=== PATIENT | female | born 1955 | race Caucasian/White ===

== ENCOUNTER 2022-01-23 21:58 | Observation (INO) | payer MEDICARE, SELFPAY ==
--- NOTE | ~2022-01-23 | XR_ITS ---
EXAMINATION: XR chest 1V portable INDICATION: Cough TECHNIQUE: Portable AP chest at 2359 hours COMPARISON: None available FINDINGS: The lungs are free of acute opacities. No pleural effusion or pneumothorax. The cardiomedia stinal silhouette is normal. Changes of fusion procedure are noted in the lower cervical spine. IMPRESSION: 1. No acute cardiopulmonary abnormality. Reviewed, dictated and finalized at location A. HATCHERY INSPECTOR
--- NOTE | ~2022-01-23 | CT_ITS ---
EXAMINATION: CT brain wo con DATE: 01/24/2022 00:50 INDICATION: Syncope. Found lying in driveway. TECHNIQUE: Computed tomography (CT) of the head was performed without intravenous contrast. The mA wa s adjusted according to patient size. Iterative reconstruction technique was employed. Exam dose: 12 10.67 mGy-cm total exam DLP. COMPARISON: None FINDINGS: Bilateral carotid siphon and supraclinoid internal carotid artery calcifications and verteb ral artery calcification. There is nonspecific diminished attenuation of the cerebral white matter, l ikely due to chronic small vessel ischemic changes. Bilateral chronic basal ganglia lacunar infarcts. No intracranial mass lesion or hemorrhage, midline shift or mass effect. No subdural or epidural hematoma. Focal Periosteal thickening or mucous retention cyst in the posterior left maxillary sinus and mild soft ti ssue thickening the ethmoid air cells. The paranasal sinuses and mastoid air cells are otherwise unre markable. No fracture or bone destruction of the cranial vault. IMPRESSION: Cerebral atherosclerosis and chronic small vessel ischemic changes of the cerebral white matter Bilateral chronic basal ganglia lacunar infarcts No acute intracranial finding or skull fracture Reviewed, dictated and finalized at Location A. Reviewed, dictated and finalized at location B. H DYEING RANGE TENDER
--- NOTE | ~2022-01-23 | CT_ITS ---
EXAMINATION: CTA brain DATE: 01/26/2022 20:27 INDICATION: Syncope. TECHNIQUE: Computed tomographic angiography (CTA) of the head was performed without and with 100 mL O mnipaque-350 intravenous contrast. Automated exposure control and iterative reconstruction technique were employed. The dose-length product was 1084.96 mGy-cm. Maximum intensity projection 3D reconstru ctions were created. Volume-rendered 3D reconstructions of the intracranial arteries were created by the technologist on a separate workstation. COMPARISON: Head CT 01/24/2022, brain MRI 01/24/2022 FINDINGS: There is an old infarct in left occipital lobe. There are old infarcts involving the bilate ral basal ganglia and anterior limbs of the internal capsules. There are scattered areas of low atten uation in the cerebral white matter. There is no intracranial hemorrhage, acute infarction, or abnorm al intracranial mass lesion. There is ex vacuo dilatation of the body of left lateral ventricle. Ther e is mild mucosal thickening in the paranasal sinuses. The mastoid air cells are normal. The orbits a re normal. Right vertebral artery is dominant. There is mild stenosis of basilar artery. There is no significant stenosis of the posterior cerebral arteries. There is mild stenosis of the intracranial i nternal carotid arteries and middle cerebral arteries. There is no significant stenosis of the anteri or cerebral arteries. Anterior communicating artery is normal. Posterior communicating arteries are n ot identified. There is no aneurysm. IMPRESSION: 1. Old infarcts involving the bilateral basal ganglia, anterior limbs of the bilateral internal capsu les, and left occipital lobe. 2. Mild nonspecific cerebral white matter disease, which likely represents chronic small vessel ische duy disease. 3. No aneurysm or significant intracranial arterial stenosis. Reviewed, dictated and finalized at location A. SION HUMAN RESOURCES MANAGER IMPRESSION: 1. Old infarcts involving the bilateral basal ganglia, anterior limbs of the bi lateral internal capsules, and left occipital lobe. 2. Mild nonspecific cerebral white matter disease, which likely represents matrix worker ale small vessel ischemic disease. 3. No aneurysm or significant intracranial arterial stenosis.
--- NOTE | ~2022-01-23 | MR_ITS ---
EXAMINATION: MR brain/brain stem wo con DATE: 01/24/2022 08:39 INDICATION: Syncope. TECHNIQUE: Magnetic resonance imaging (MRI) of the brain and brainstem was performed without intraven ous contrast. COMPARISON: Head CT 01/24/2022 FINDINGS: There are old infarcts in the bilateral basal ganglia. There is a small infarct in left occ ipital lobe. There are scattered areas of nonspecific increased T2-weighted signal intensity in the c erebral white matter. There is no intracranial hemorrhage, acute infarction, or abnormal intracranial mass lesion. The ventricles are normal in size. There is mild mucosal thickening in the paranasal si nuses. The orbits are normal. The mastoid air cells are normal. IMPRESSION: 1. Old infarcts in the left occipital lobe and bilateral basal ganglia. 2. Mild nonspecific cerebral white matter disease, which likely represents chronic small vessel ische duy disease. Reviewed, dictated and finalized at location A. SACTION ADVISORY SERVICES MANAGER IMPRESSION: 1. Old infarcts in the left occipital lobe and bilateral basal ganglia. 2. Mild nonspecific cerebral white matter disease, which likely represents finish repair worker ale small vessel ischemic disease.
--- NOTE | ~2022-01-23 | US_ITS ---
EXAMINATION: US carotid duplex BI DATE: 01/24/2022 14:23 INDICATION: Syncope TECHNIQUE: Grayscale, color Doppler, and pulsed Doppler images of the cervical carotid arteries were obtained. The degree of vessel stenosis is placed in one of the following categories: normal, <50%, 5 0-69%, >=70% but less than near-occlusion, near-occlusion, or total occlusion. Note that percent sten osis relative to normal distal artery lumen diameter is indirectly measured from velocity measurement s as described by Lee, et al. Radiology 2003; 229:340-346. Notes: Normal: Peak systolic velocity <125 centimeters/sec and no plaque <50%. Peak systolic velocity <125 ( EDV <40; ICA/CCA PSV ratio <2.0; used these factors only a tandem lesions or low cardiac output or co ntralateral disease) 50-69 %: PSV 125-230 (EDV 40-100; ratio 2-4) >= 70% but less than near occlusion: PSV greater than 230 (EDV > 100; ratio> 4.0) Near Occlusion: PSV that is variable; markedly narrowed lumen Occlusion: Absent flow on color/spectral Doppler and no lumen on beth scale. COMPARISON: None. FINDINGS: RIGHT: The right common carotid artery (CCA) peak systolic velocity (PSV) is 92 cm/s. The right internal car otid artery (ICA) PSV is 104 cm/s. The right ICA end-diastolic velocity (EDV) is 32 cm/s. The right I CA/CCA PSV ratio is 1.1. The external carotid artery (ECA) PSV is 132 cm/s. There is antegrade flow i n the right vertebral artery. LEFT: The left CCA PSV is 112 cm/s. The left ICA PSV is 97 cm/s. The left ICA EDV is 38 cm/s. The left ICA/ CCA PSV ratio is 0.9. The ECA PSV is 16 cm/s. There is antegrade flow in the left vertebral artery. IMPRESSION: 1. Less than 50% stenosis in the right internal carotid artery by sonographic criteria. 2. Less than 50% stenosis in the left internal carotid artery by sonographic criteria. Reviewed, dictated and finalized at location A. CLERK IMPRESSION: 1. Less than 50% stenosis in the right internal carotid artery by sonographic ryanne calhoun. 2. Less than 50% stenosis in the left internal carotid artery by sonographic pauline singh.
--- NOTE | ~2022-01-23 | CT_ITS ---
EXAMINATION: CT cervical spine wo con DATE: 01/24/2022 00:49 INDICATION: Fall. Found lying in driveway. TECHNIQUE: Computed tomography (CT) of the cervical spine was performed without intravenous contrast. Automated exposure control and iterative reconstruction technique were employed. Exam dose: 502.85 mGy-cm total exam DLP. COMPARISON: None FINDINGS: Status post anterior and interbody surgical fusion at C6-7. There is straightening of the cervical spine which may be due to positioning or muscle spasm. There is minimal anterolisthesis at C2-3 and C3-4. Mild degenerative disease at C3-4. Moderate degenerative disease at C4-5. Moderately severe degenerative disc disease at C5-6. Moderate degenerative disc disease and minimal anterolisthesis at C7-T1. Degenerative changes noted at the apophyseal joints, most prominently at C2-3 and C3-4 on the left an d bilaterally at C7-T1. Uncovertebral joint spurring is noted, particularly prominent on the right at C4-5 and bilaterally at C5-6. C1 and C2 are normally aligned and the odontoid process is intact. No fracture or dislocation or lock ed facet or prevertebral soft tissue swelling. IMPRESSION: Straightening of the cervical spine which may be due to muscle spasm; no fracture or dis location or locked facet Status post anterior and interbody surgical fusion at C6-7 Cervical spondylosis Reviewed, dictated and finalized at Location A. Reviewed, dictated and finalized at location B. E WORKER PACKAGER IMPRESSION: Straightening of the cervical spine which may be due to muscle spa sm; no fracture or dislocation or locked facet Status post anterior and interbody surgical fusion at C6-7 Cervical spondylosis
[2022-01-23 22:02] VITALS: BP 156/65; PULSE 121; RESP 22; TEMP 37.5; O2SAT 93
--- NOTE | 2022-01-23 22:02 | ECG_ITS ---
Measurements Intervals [place] Rate: 117 P: 29 RI: 140 QRS: 15 QRSD: 95 T: 55 QT: 437 QTc: 611 Interpretive Statements SINUS TACHYCARDIA POSSIBLE LEFT ATRIAL ENLARGEMENT [-0.1mV P WAVE IN V1/V2] BORDERLINE ECG NO PREVIOUS ECG AVAILABLE FOR COMPARISON Electronically Signed On 01-25-2022 7:20:10 CHANNEL CEMENTER INSOLE MACHINE by Marco A Carter M.D.
[2022-01-23 22:20] LABS: Basophils Absolute Auto 0.1 K/mm3 (0.0-0.1); Basophils Percent Auto 0.8 % (0.2-1.2); Hematocrit 38.1 % (37.0-47.0); Hemoglobin 12.9 g/dL (12.0-15.0); Immature Granulocyte Absolute 0.03 K/mm3 (0.00-0.031); Immature Granulocyte Percent A 0.3 % (0-0.5); Lymphocytes Absolute Auto 0.51 K/mm3 (0.9-3.2); Lymphocytes Percent Auto 5.7 % (18.3-44.2); Mean Corpuscular HGB Conc 33.9 g/dl (32-36); Mean Corpuscular Hemoglobin 29.9 pg (26-34); Mean Corpuscular Volume 88.2 fl (80-100); Monocytes Absolute Auto 0.9 K/mm3 (0.1-0.6); Monocytes Percent Auto 9.8 % (2.6-8.5); Neutrophils Absolute Auto 7.4 K/mm3 (1.3-6.7); Neutrophils Percent Auto 83.4 % (45.5-73.1); Platelet Count Result 266 k/mm3 (150-375); Red Blood Count 4.32 M/mm3 (4.2-5.4); Red Cell Distribution Width 13.2 % (11.5-14.5); White Blood Count 8.9 K/mm3 (4.5-10.0)
[2022-01-23 22:31] LABS: Alanine Aminotransferase 29 U/L (6-35); Albumin Level 4.4 g/dL (3.5-5.1); Alkaline Phosphatase 190 U/L (38-126); Anion Gap 9 mmol/L (8-16); Aspartate Amino Transferase 47 U/L (14-36); Bilirubin,Total 0.7 mg/dL (0.2-1.3); Blood Urea Nitrogen 15 mg/dL (7-17); Calcium 8.7 mg/dL (8.4-10.2); Carbon Dioxide 26 mmol/L (22-30); Chloride 88 mmol/L (98-107); Estimated Glomerular Filt Rate 55; Glucose 119 mg/dL (65-110); Potassium 3.8 mmol/L (3.4-5.0); Sodium 123 mmol/L (137-145)
[2022-01-24] VITALS (33 sets, daily range): BP systolic 110–168; BP diastolic 54–120; PULSE 78–116; RESP 14–26; TEMP 36.2–36.6; O2SAT 87–97; BMI 34.2; BMI 34.0
--- NOTE | 2022-01-24 | ECHO_ITS ---
Patient Info Name: Altagracia Gaviria Age: 66 years : 1955 Gender: Female Ht: 63 in Wt: 191 lbs BSA: 2.00 m2 HR: 81 bpm Heart Rhythm: Sinus Rhythm Technical Quality: Fair Exam Date: 01/24/2022 3:09 PM Exam Location: [facility] Exam Room: [facility] Patient Status: Outpatient Admit Date: 01/24/2022 Staff Ordering Physician: Bernice Soto MD Retail Wireless Associate: Freda Loo RDCS Attending Provider: Bernice Soto MD Referring Physician: Charles MURO; Exam Type: CA echo doppler color flow Study Info Indications - syncope Complete two-dimensional, color flow and Doppler transthoracic echocardiogram is performed. Summary 1. Complete two-dimensional, color flow and Doppler transthoracic echocardiogram is performed. 2. Normal left ventricular size with concentric hypertrophy and hyperdynamic systolic function. 3. Grade 1 diastolic noncompliance. 4. Mildly sclerotic aortic valve which is not stenotic. Left Ventricle Left ventricular chamber dimension is normal. Left ventricular systolic function is hyperdynamic, estimated at >70%. There is moderate concentric increased left ventricular wall thickness. The left ventricular diastolic function is grade I diastolic dysfunction. Right Ventricle Right ventricular chamber dimension is normal. Left Atria Left atrial chamber dimension is normal. Right Atria Right atrial chamber dimension is normal. Aortic Valve The aortic valve is trileaflet. There is mild aortic valve sclerosis. Pulmonic Valve The pulmonic valve is not well visualized. Mitral Valve The mitral valve has normal leaflets. The mitral valve annulus is mildly calcified. Tricuspid Valve The tricuspid valve leaflets are normal. Pericardium/Pleural The pericardium appears normal. Aorta The aortic root size at the sinus of Valsalva is normal. Left Ventricular Outflow Tract Name Value Normal LVOT 2D LVOT Diameter 2.0 cm LVOT Doppler LVOT Peak Gradient 6 mmHg LVOT Mean Gradient 4 mmHg LVOT VTI 21 cm LVOT VTI/AV VTI Ratio 0.8 LVOT Stroke Volume 64 ml LVOT CO 16.3 l/min LVOT CI 8.2 l/min/m2 Pulmonic Valve Name Value Normal PV Doppler PV Peak Gradient 4 mmHg Mitral Valve Name Value Normal MV Doppler MV Decel [place] 360 cm/s2 MV PHT 60 ms MV Area (PHT)
[2022-01-24 00:07] LABS: Ethanol < 10 mg/dL (<10)
[2022-01-24 00:21] LABS: NT Pro B Type Natriuretic Pept 388 pg/mL (5-100); Troponin I < 0.012 ng/mL (0.000-0.034)
--- NOTE | 2022-01-24 00:24 | ED.GENADULT ---
HPI - General Adult General Chief complaint: Syncope Stated complaint: syncope Time Seen by Provider: 01/23/22 23:50 History of Present Illness HPI narrative: This is a 66-year-old female presenting ED after being found down in her driveway. Patient says that she went outside to have a smoke. Next thing she remembers being woken up by her son. Her son said he found her laying on the ground. When he got there she was confused, more so than usual. Patient had urinary incontinence. She did not bite her tongue. Patient has no history of seizures. She does not recall the events leading up to her loss of consciousness. She denies any pain at this time. She has poor baseline respiratory status but does not state is any worse than usual. Patient has a history of CVA with memory loss and generalized weakness but no focal deficits. Related Data Allergies Allergy/AdvReac Type Severity Reaction Status Date / Time No Known Allergies Allergy Verified 01/24/22 01:08 Review of Systems Review of Systems: CONSTITUTIONAL: Denies night sweats. EYES: No eye pain ENT: Denies rhinorrhea CARDIOVASCULAR: Denies palpitations RESPIRATORY: Denies hemoptysis GASTROINTESTINAL: Denies hematemesis GENITOURINARY: Denies hematuria. SKIN: Denies rash MUSCULOSKELETAL: Denies myalgia. NEUROLOGIC: Denies weakness. PSYCHIATRIC: Denies delusions PMFSH Past Medical History Medical History CAD (coronary artery disease) COPD (chronic obstructive pulmonary disease) CVA (cerebral vascular accident) Hypertension Hypothyroid Surgical History Surgical History (Updated 01/24/22 @ 00:27 by Marin Curiel MD) H/O section Hx of cholecystectomy Social History Social History (Updated 01/24/22 @ 00:27 by Marin Curiel MD) Social History: denies alcohol, long-time smoker, denies drug use Exam Narrative: APPEARANCE: patient appears chronically unwell Head: atraumatic. EYES: EOMI, NOSE: Atraumatic NECK: Trachea midline RESPIRATORY: scattered expiratory wheezes, increased work of breathing CARDIOVASCULAR: tachycardic ABDOMINAL: obese, no tenderness guarding or rebound MUSCULOSKELETAl: No obvious deformities NEURO: Alert. Cranial nerves 2-12 grossly intact. Sensation light touch, motor function cerebellar function intact for 4 extremities. Gait exam was deferred SKIN:: Warm, dry. Normal color PSYCHIATRIC: Normal affect Course Vital Signs Vital signs: Vital Signs Temperature 99.5 F 01/23/22 22:02 Pulse Rate 121 H 01/23/22 22:02 Respiratory Rate 22 H 01/23/22 22:02 Blood Pressure 156/65 H 01/23/22 22:02 Pulse Oximetry 93 01/23/22 22:02 Oxygen Delivery Room Air 01/23/22 22:02 Temperature 99.5 F 01/23/22 22:02 Pulse Rate 111 H 01/24/22 00:59 Respiratory Rate 23 H 01/24/22 00:59 Blood Pressure 156/65 H 01/23/22 22:02 Pulse Oximetry 93 01/23/22 22:02 Oxygen Delivery Room Air 01/23/22 22:02 Medical Decision Making MDM Narrative Medical decision making narrative: This is a chronically unwell 66-year-old female presenting after being found down in her driveway. Differential includes syncope versus seizure. Lab work, CT head chest x-ray EKG been obtained. CT head and C-spine were negative for any acute findings Lab work was significant for hyponatremia and hypochloremia. The patient is receiving IV fluids. Rest her lab work within normal limits. Trop. EKG interpretation: Rhythm [sinus], Rate 117 [place] -[normal], [place] -[normal], QRS [narrow], QTC [normal], T waves -[negative for concerning inversions], ST Segments - [Negative for concerning elevations] Final interpretations: Sinus tachycardia this time patient's workup has been negative. She presents with a mixed picture and it is possible this is a syncopal event versus seizure. Given the patients poor baseline health and unclear diagnosis she will be admitted
[2022-01-24] MEDS: IPRATROPIUM BR 0.02% INH SOLN 0.5 MG/2.5 ML VIAL INHALATION ×2 (00:47→21:30)
[2022-01-24] MEDS: ALBUTEROL SULFATE NEB 2.5 MG/3 ML INH 5 MG INHALATION (00:47)
[2022-01-24 01:04] LABS: Influenza A QL RT-PCR Positive (Negative); Influenza B QL RT-PCR Negative (Negative); SARS-CoV-2 RNA PCR Negative
[2022-01-24] MEDS: SODIUM CHLORIDE 0.9% IV 1,000 ML 999 ML IV CONT ×2 (01:08→02:17)
[2022-01-24] MEDS: methylPREDNISolone SOD SUCC 125 MG VIAL IV PUSH (01:10)
[2022-01-24] MEDS: MAGNESIUM SULF 2 GM/WATER 50ML 2 GM/50 ML BAG IVPB (01:13)
--- NOTE | 2022-01-24 01:44 | P.HP_ITS ---
H&P: HPI History of Present Illness Date/Time: 01/24/22 01:44 [facility] Past Medical History Medical History CAD (coronary artery disease) COPD (chronic obstructive pulmonary disease) CVA (cerebral vascular accident) Hypertension Hypothyroid Surgical History Surgical History (Updated 01/24/22 @ 00:27 by Marin Curiel MD) H/O section Hx of cholecystectomy Social History Social History (Updated 01/24/22 @ 00:27 by Marin Curiel MD) Social History: denies alcohol, long-time smoker, denies drug use Meds Home Medications and Allergies Allergies Allergy/AdvReac Type Severity Reaction Status Date / Time No Known Allergies Allergy Verified 01/24/22 01:08 Vital Signs Vital Signs - 24 hr 01/23/22 22:02 01/24/22 00:36 01/24/22 00:50 Temperature 99.5 F Pulse Rate 121 H 78 114 H Respiratory Rate 22 H 20 Blood Pressure 156/65 H Pulse Oximetry 93 Oxygen Delivery Room Air 01/24/22 00:59 Temperature Pulse Rate 111 H Respiratory Rate 23 H Blood Pressure Pulse Oximetry Oxygen Delivery H&P: Results Labs Labs: Short CBC 01/23/22 Range/Units 22:15 WBC 8.9 (4.5-10.0) K/mm3 Hgb 12.9 (12.0-15.0) g/dL Hct 38.1 (37.0-47.0) % Plt Count 266 (150-375) k/mm3 [facility] 01/23/22 22:15 Sodium 123 L Potassium 3.8 Chloride 88 L Carbon Dioxide 26 BUN 15 Creatinine 1.00 Glucose 119 H Calcium 8.7 Cardiac Enzymes 01/23/22 Range/Units 22:15 Troponin I < 0.012 (0.000-0.034) ng/mL Liver Function 01/23/22 Range/Units 22:15 Total Bilirubin 0.7 (0.2-1.3) mg/dL AST 47 H (14-36) U/L ALT 29 (6-35) U/L Alkaline Phosphatase 190 H (38-126) U/L Albumin 4.4 (3.5-5.1) g/dL
[2022-01-24 02:17] LABS: Amphetamine Screen Urine Negative (Negative); Barbiturate Screen Urine Negative (Negative); Benzodiazepines Screen Urine Negative (Negative); Cannabinoid Screen Urine Negative (Negative); Cocaine Screen Urine Negative (Negative); Methadone Screen Urine Negative (Negative); Opiate Screen Urine Negative (Negative); Phencyclidine Screen Urine Negative (Negative)
[2022-01-24 02:44] LABS: Troponin I < 0.012 ng/mL (0.000-0.034)
--- NOTE | 2022-01-24 05:10 | PM.IMHP ---
H&P: HPI History of Present Illness Date/Time: 01/24/22 05:10 Chief Complaint: SYNCOPE Narrative: This is a 66-year-old female with past medical history significant for COPD / emphysema, coronary artery disease, hypertension current everyday smoker 1 pack a day. patient was brought to the emergency room after she was found down in her driveway she had been in her usual state of health according to patient she went out to smoke and a family member so her laying on the driveway. Patient denies any aura, no migraine headache, no vision changes, no lightheadedness, has no recollection of the event she was confused when her family member tried to arouse her, patient denies any fevers, rigors, chills, chest pain, leg swelling, nausea, vomiting, abdominal pain. Patient is being placed in observation for further evaluation management and treatment. Review of Systems Review of Systems: Found down in her driveway Constitutional: Constitutional: Denies chills, Denies fever(s), Denies malaise, Denies night sweats and Denies weakness Eyes: Eyes: Denies change in vision, Denies diplopia and Denies floaters ENT: Denies dysphagia, Denies vertigo, Denies dizziness, Denies odynophagia and Denies disequilibrium Cardiovascular: Cardiovascular: Denies chest pain, Reports syncope, Denies irregular heart rhythm, Denies leg edema and Denies lightheadedness Gastrointestinal: Gastrointestinal: Denies abdominal pain, Denies dyspepsia, Denies heartburn, Denies diarrhea, Denies nausea and Denies vomiting Genitourinary: Genitourinary: Denies dysuria Musculoskeletal: Musculoskeletal: Denies myalgias, Denies limited range of motion and Denies neck pain Integumentary/Breasts: Skin/Breast: Denies rash Neurologic: Denies Abnormal speech present, Denies abnormal gait, Denies vertigo, Denies dizziness, Reports syncope, Denies frequent falls, Denies headache(s), Denies focal weakness and Denies Sensory deficit (Neuro) Psychiatric: Psychiatric: Reports no additional psychiatric complaints and Reports as per HPI Endocrine: Endocrine: Denies cold intolerance, Denies flushing, Denies heat intolerance, Denies polyphagia, Denies polydipsia and Denies palpitations Hematologic/Lymphatic: Hematologic/Lymphatic: Reports no additional hematologic/lymphatic complaints and Reports as per HPI Allergic/Immunologic: Allergic/Immunologic: Reports no additional allergic/immunologic complaints and Reports as per HPI [facility] Past Medical History Medical History CAD (coronary artery disease) COPD (chronic obstructive pulmonary disease) CVA (cerebral vascular accident) Hypertension Hypothyroid Surgical History Surgical History (Updated 01/24/22 @ 00:27 by Marin Curiel MD) H/O section Hx of cholecystectomy Social History Social History (Updated 01/24/22 @ 00:27 by Marin Curiel MD) Social History: denies alcohol, long-time smoker, denies drug use Smoking packs per day: 1 Smoking cigarettes per day: 20.0 Years smoked: 50 Smoking pack-years: 50.00 Smoking status: Current every day smoker Tobacco type: cigarettes Alcohol intake: never Substance use: never Lack of Transportation: No Lack of Food: Never True Current Housing: I Have Housing Concerned About Future Housing: Decline to Answer Difficulty Paying Gas/Electric Bills: Decline to Answer Difficulty Paying for Meds: Decline to Answer Currently Unemployed: Decline to Answer Education: Decline to Answer Difficulty w/ Childcare or Family Care: Decline to Answer Spiritual care concerns: No Meds Home Medications and Allergies Allergies Allergy/AdvReac Type Severity Reaction Status Date / Time No Known Allergies Allergy Verified 01/24/22 01:08 Vital Signs Vital Signs - 24 hr 01/23/22 22:02 01/24/22 00:36 01/24/22 00:50 Temperature 99.5 F Pulse Rate 121 H 78 114 H Respiratory Rate 22 H 20 Bl
[2022-01-24 09:20] LABS: Glucose Point of Care 158 mg/dl (65-105)
[2022-01-24 12:14] LABS: Glucose Point of Care 136 mg/dl (65-105)
--- NOTE | 2022-01-24 13:29 | PM.IMPN ---
Progress Note: A&P Assessment and Plan (1) Syncope and collapse: Code(s): R55 - Syncope and collapse Status: Acute Assessment and Plan: Patient presented to the ED following an unwitnessed syncopal episode at home. Patient was found on her driveway by her son. No prior history of syncope or seizures. She does endorse a prior stroke this year without residual. Patient did test positive for influenza A. Sodium 123 on admission. Trend sodium Neuro was consulted appreciate recommendations. Chest x-ray was negative for acute pulmonary disease Head CT shows bilateral chronic basal ganglia lacunar infarcts but no acute disease. CT cervical spine showed acute fracture or dislocation Brain MRI shows old infarcts to the left occipital lobe and bilateral basal ganglia but no acute stroke Carotid Dopplers pending Seizure precautions Check orthostatic vitals Monitor telemetry PT/OT evaluation (2) Hyponatremia: Code(s): E87.1 - Hypo-osmolality and hyponatremia Status: Acute Assessment and Plan: Sodium 123 on admission. No prior labs available to compare. Start NS IV fluids at 100 mL/hour Check urine osmo and urine sodium Seizure precautions. Trend sodium q.6 hours until greater than 130 (3) Flu: Code(s): J11.1 - Influenza due to unidentified influenza virus with other respiratory manifestations Status: Acute Assessment and Plan: patient tested positive for influenza A upon admission. She is requiring supplemental oxygen at this time. Chest x-ray is without infiltrates or consolidations suggesting bacterial pneumonia. No leukocytosis. No bandemia. Hold antibiotics at this time. Start Tamiflu, renally dosed continue for 5 days. Continue supplemental oxygen to keep sats greater than 92% and wean as patient tolerates Recommend patient get influenza vaccination, up-to-date on pneumococcal vaccination, and COVID-19 series plus booster at discharge. (4) New onset seizure: Code(s): R56.9 - Unspecified convulsions Status: Acute Assessment and Plan: Patient was found on the driveway by her son. Patient was confused and had urinary incontinence. No tongue injury reported. Patient has no prior history of seizures. Of note patient has sodium level of 123 on admission prior history stroke. Seizure precautions Neuro consulted and appreciate recommendations (5) Acute dehydration: Code(s): E86.0 - Dehydration Status: Acute Assessment and Plan: As above. On IV fluids (6) COPD (chronic obstructive pulmonary disease): Qualifiers: COPD type: unspecified COPD Qualified Code(s): J44.9 - Chronic obstructive pulmonary disease, unspecified Code(s): J44.9 - Chronic obstructive pulmonary disease, unspecified Status: Chronic Assessment and Plan: Chronic, exacerbated by influenza infection. DuoNebs scheduled q.6 hours and titrate as needed. Prednisone 40 mg p.o. daily x5 days or longer if patient has extended recovery Hold patient maintenance inhalers lung receiving scheduled NKECHI (7) CAD (coronary artery disease): Qualifiers: Coronary Disease-Associated Artery/Lesion type: [place] artery [place] vs. transplanted heart: [place] heart Associated angina: without angina Qualified Code(s): I25.10 - Atherosclerotic heart disease of [place] coronary artery without angina pectoris Code(s): I25.10 - Atherosclerotic heart disease of [place] coronary artery without angina pectoris Status: Chronic Assessment and Plan: Chronic, stable. Clarify patient home meds and continue his blood pressure tolerates (8) Hypertension: Qualifiers: Hypertension type: primary hypertension Qualified Code(s): I10 - Essential (primary) hypertension Code(s): I10 - Essential (primary) hypertension Status: Chronic Assessment and Plan: Chronic, stable. clarify patient home dose and resume
[2022-01-24] MEDS: OSELTAMIVIR PHOSPHATE ORAL SUSP 30 MG/5 ML SYRINGE PO ×2 (13:32→21:41)
[2022-01-24] MEDS: SODIUM CHLORIDE 0.9% IV 1,000 ML 100 ML IV CONT (13:32)
[2022-01-24 14:21] LABS: Albumin Level 3.9 g/dL (3.5-5.1); Alkaline Phosphatase 153 U/L (38-126); Anion Gap 7 mmol/L (8-16); Aspartate Amino Transferase 72 U/L (14-36); Bilirubin,Total 0.3 mg/dL (0.2-1.3); Blood Urea Nitrogen 18 mg/dL (7-17); Calcium 8.3 mg/dL (8.4-10.2); Carbon Dioxide 28 mmol/L (22-30); Chloride 96 mmol/L (98-107); Estimated CRCL calculation 56 ml/min; Estimated Glomerular Filt Rate > 60; Glucose 169 mg/dL (65-110); Potassium 3.4 mmol/L (3.4-5.0); Sodium 131 mmol/L (137-145)
[2022-01-24 14:26] LABS: Alanine Aminotransferase 32 U/L (6-35)
[2022-01-24] MEDS: BENZONATATE 100 MG CAPSULE PO (18:42)
[2022-01-24] MEDS: ALBUTEROL SULFATE NEB 2.5 MG/3 ML INH INHALATION (21:30)
[2022-01-24] MEDS: guaiFENesin 12 HR 600 MG TABCR PO (21:41)
[2022-01-24] MEDS: FAMOTIDINE 20 MG TABLET PO (21:41)
[2022-01-24 23:11] LABS: Sodium 134 mmol/L (137-145)
[2022-01-25] VITALS (11 sets, daily range): BP systolic 141–156; BP diastolic 71–83; PULSE 73–111; RESP 16–20; TEMP 35.9–36.2; O2SAT 92–96
[2022-01-25 00:21] LABS: Thyroid Stimulating Hormone Reflex < 0.015 uIU/mL (0.465-4.68)
[2022-01-25] MEDS: guaiFENesin/DEXTROMETHORPHAN 10 ML UDC 5 ML PO ×3 (01:14→20:46)
[2022-01-25 03:42] LABS: Free T4 Free Thyroxine Reflex 2.03 ng/dL (0.78-2.19)
[2022-01-25] MEDS: ALBUTEROL SULFATE NEB 2.5 MG/3 ML INH INHALATION ×3 (03:55→15:14)
[2022-01-25] MEDS: IPRATROPIUM BR 0.02% INH SOLN 0.5 MG/2.5 ML VIAL INHALATION ×3 (03:56→15:14)
[2022-01-25 04:34] LABS: Total Triiodothyronine (T3) 0.84 NG/ML (0.97-1.69)
[2022-01-25 07:07] LABS: Basophils Percent Auto 0.2 % (0.2-1.2); Hemoglobin 11.7 g/dL (12.0-15.0); Immature Granulocyte Absolute 0.02 K/mm3 (0.00-0.031); Immature Granulocyte Percent A 0.3 % (0-0.5); Lymphocytes Absolute Auto 1.32 K/mm3 (0.9-3.2); Lymphocytes Percent Auto 20.3 % (18.3-44.2); Mean Corpuscular HGB Conc 32.5 g/dl (32-36); Mean Corpuscular Hemoglobin 29.8 pg (26-34); Mean Corpuscular Volume 91.8 fl (80-100); Mean Platelet Volume 10.3 fl (7.4-10.4); Monocytes Absolute Auto 0.8 K/mm3 (0.1-0.6); Monocytes Percent Auto 12.6 % (2.6-8.5); Neutrophils Absolute Auto 4.3 K/mm3 (1.3-6.7); Neutrophils Percent Auto 66.6 % (45.5-73.1); Platelet Count Result 250 k/mm3 (150-375); Red Blood Count 3.92 M/mm3 (4.2-5.4); Red Cell Distribution Width 13.6 % (11.5-14.5); White Blood Count 6.5 K/mm3 (4.5-10.0)
[2022-01-25 07:21] LABS: Anion Gap 4 mmol/L (8-16); Blood Urea Nitrogen 20 mg/dL (7-17); Calcium 7.9 mg/dL (8.4-10.2); Carbon Dioxide 28 mmol/L (22-30); Chloride 101 mmol/L (98-107); Estimated CRCL calculation 56 ml/min; Estimated Glomerular Filt Rate > 60; Glucose 97 mg/dL (65-110); Potassium 3.1 mmol/L (3.4-5.0); Sodium 133 mmol/L (137-145)
--- NOTE | 2022-01-25 09:16 | PM.IMPN ---
Progress Note: A&P Assessment and Plan (1) Syncope and collapse: Code(s): R55 - Syncope and collapse Status: Acute Assessment and Plan: Patient presented to the ED following an unwitnessed syncopal episode at home. Patient was found on her driveway by her son. No prior history of syncope or seizures. She does endorse a prior stroke this year without residual. Patient did test positive for influenza A. Sodium 123 on admission. Trend sodium Neuro was consulted appreciate recommendations. Chest x-ray was negative for acute pulmonary disease Head CT shows bilateral chronic basal ganglia lacunar infarcts but no acute disease. CT cervical spine showed acute fracture or dislocation Brain MRI shows old infarcts to the left occipital lobe and bilateral basal ganglia but no acute stroke Carotid Dopplers less than 50% stenosis bilaterally Seizure precautions Orthostatic negative Monitor telemetry PT/OT evaluation (2) Hyponatremia: Code(s): E87.1 - Hypo-osmolality and hyponatremia Status: Acute Assessment and Plan: Sodium 123 on admission. No prior labs available to compare. Start NS IV fluids at 100 mL/hour Check urine osmo and urine sodium Seizure precautions. Trend sodium q.6 hours until greater than 130 Sodium today 133. (3) Flu: Code(s): J11.1 - Influenza due to unidentified influenza virus with other respiratory manifestations Status: Acute Assessment and Plan: patient tested positive for influenza A upon admission. She is requiring supplemental oxygen at this time. Chest x-ray is without infiltrates or consolidations suggesting bacterial pneumonia. No leukocytosis. No bandemia. Hold antibiotics at this time. Start Tamiflu, renally dosed continue for 5 days. Continue supplemental oxygen to keep sats greater than 92% and wean as patient tolerates Recommend patient get influenza vaccination, up-to-date on pneumococcal vaccination, and COVID-19 series plus booster at discharge. Of 2 saturations stable at 92 on room air (4) New onset seizure: Code(s): R56.9 - Unspecified convulsions Status: Acute Assessment and Plan: Patient was found on the driveway by her son. Patient was confused and had urinary incontinence. No tongue injury reported. Patient has no prior history of seizures. Of note patient has sodium level of 123 on admission prior history stroke. Seizure precautions Neuro consulted and appreciate recommendations (5) Acute dehydration: Code(s): E86.0 - Dehydration Status: Acute Assessment and Plan: As above. On IV fluids (6) COPD (chronic obstructive pulmonary disease): Qualifiers: COPD type: unspecified COPD Qualified Code(s): J44.9 - Chronic obstructive pulmonary disease, unspecified Code(s): J44.9 - Chronic obstructive pulmonary disease, unspecified Status: Chronic Assessment and Plan: Chronic, exacerbated by influenza infection. DuoNebs scheduled q.6 hours and titrate as needed. Prednisone 40 mg p.o. daily x5 days or longer if patient has extended recovery Hold patient maintenance inhalers lung receiving scheduled NKECHI (7) CAD (coronary artery disease): Qualifiers: Associated angina: without angina Coronary Disease-Associated Artery/Lesion type: [place] artery [place] vs. transplanted heart: [place] heart Qualified Code(s): I25.10 - Atherosclerotic heart disease of [place] coronary artery without angina pectoris Code(s): I25.10 - Atherosclerotic heart disease of [place] coronary artery without angina pectoris Status: Chronic Assessment and Plan: Chronic, stable. Clarify patient home meds and continue his blood pressure tolerates (8) Hypertension: Qualifiers: Hypertension type: primary hypertension Qualified Code(s): I10 - Essential (primary) hypertension Code(s): I10 - Essential (primary) hypertension Status: Chroni
[2022-01-25] MEDS: FAMOTIDINE 20 MG TABLET PO ×2 (09:55→20:47)
[2022-01-25] MEDS: guaiFENesin 12 HR 600 MG TABCR PO ×2 (09:55→20:47)
[2022-01-25] MEDS: ENOXAPARIN 40 MG/0.4 ML SYRINGE SUB-Q (09:55)
[2022-01-25] MEDS: predniSONE 20 MG TABLET 40 MG PO (09:55)
[2022-01-25] MEDS: amLODIPine BESYLATE 5 MG TABLET BY MOUTH (09:56)
[2022-01-25] MEDS: EZETIMIBE 10 MG TABLET BY MOUTH (09:56)
[2022-01-25] MEDS: lisinopriL 20 MG TABLET 40 MG BY MOUTH (09:56)
[2022-01-25] MEDS: OSELTAMIVIR PHOSPHATE ORAL SUSP 30 MG/5 ML SYRINGE PO ×2 (09:58→20:48)
[2022-01-25] MEDS: LEVOTHYROXINE SODIUM 25 MCG TABLET PO (12:32)
[2022-01-25] MEDS: LEVOTHYROXINE SODIUM 150 MCG TABLET PO (12:32)
[2022-01-25] MEDS: LORATADINE 10 MG TABLET BY MOUTH (12:32)
[2022-01-25] MEDS: SODIUM CHLORIDE 0.9% IV 1,000 ML 100 ML IV CONT (17:10)
[2022-01-25] MEDS: ATORVASTATIN 40 MG TABLET 80 MG BY MOUTH (20:47)
[2022-01-26] MEDS: SODIUM CHLORIDE 0.9% IV 1,000 ML 100 ML IV CONT ×2 (02:57→14:01)
[2022-01-26] MEDS: BENZONATATE 100 MG CAPSULE PO ×3 (02:58→22:29)
[2022-01-26] MEDS: guaiFENesin/DEXTROMETHORPHAN 10 ML UDC 5 ML PO ×2 (02:58→14:05)
[2022-01-26 06:00] VITALS: BP 155/79; PULSE 76; RESP 18; TEMP 35.9; O2SAT 90
[2022-01-26] MEDS: LEVOTHYROXINE SODIUM 25 MCG TABLET PO (06:43)
[2022-01-26] MEDS: LEVOTHYROXINE SODIUM 150 MCG TABLET PO (06:43)
[2022-01-26 07:51] LABS: Hematocrit 34.1 % (37.0-47.0); Mean Corpuscular HGB Conc 32.3 g/dl (32-36); Mean Corpuscular Volume 92.9 fl (80-100); Mean Platelet Volume 10.1 fl (7.4-10.4); Platelet Count Result 252 k/mm3 (150-375); Red Blood Count 3.67 M/mm3 (4.2-5.4); Red Cell Distribution Width 13.6 % (11.5-14.5); White Blood Count 6.2 K/mm3 (4.5-10.0)
[2022-01-26 08:17] LABS: Anion Gap 2 mmol/L (8-16); Blood Urea Nitrogen 14 mg/dL (7-17); Calcium 7.8 mg/dL (8.4-10.2); Carbon Dioxide 29 mmol/L (22-30); Chloride 105 mmol/L (98-107); Estimated CRCL calculation 71 ml/min; Estimated Glomerular Filt Rate > 60; Glucose 85 mg/dL (65-110); Potassium 3.2 mmol/L (3.4-5.0); Sodium 136 mmol/L (137-145)
[2022-01-26 08:44] LABS: Glucose Point of Care 82 mg/dl (65-105)
--- NOTE | 2022-01-26 08:49 | PM.IMPN ---
Progress Note: A&P Assessment and Plan (1) Syncope and collapse: Code(s): R55 - Syncope and collapse Status: Acute Assessment and Plan: Patient presented to the ED following an unwitnessed syncopal episode at home. Patient was found on her driveway by her son. No prior history of syncope or seizures. She does endorse a prior stroke this year without residual. Patient did test positive for influenza A. Sodium 123 on admission. Trend sodium Neuro was consulted appreciate recommendations. Chest x-ray was negative for acute pulmonary disease Head CT shows bilateral chronic basal ganglia lacunar infarcts but no acute disease. CT cervical spine showed acute fracture or dislocation Brain MRI shows old infarcts to the left occipital lobe and bilateral basal ganglia but no acute stroke Carotid Dopplers less than 50% stenosis bilaterally Seizure precautions Orthostatic negative Monitor telemetry PT/OT evaluation (2) Hyponatremia: Code(s): E87.1 - Hypo-osmolality and hyponatremia Status: Acute Assessment and Plan: Sodium 123 on admission. No prior labs available to compare. Start NS IV fluids at 100 mL/hour Check urine osmo and urine sodium Seizure precautions. Trend sodium q.6 hours until greater than 130 Sodium today 136 (3) Flu: Code(s): J11.1 - Influenza due to unidentified influenza virus with other respiratory manifestations Status: Acute Assessment and Plan: patient tested positive for influenza A upon admission. She is requiring supplemental oxygen at this time. Chest x-ray is without infiltrates or consolidations suggesting bacterial pneumonia. No leukocytosis. No bandemia. Hold antibiotics at this time. Start Tamiflu, renally dosed continue for 5 days. Continue supplemental oxygen to keep sats greater than 92% and wean as patient tolerates Recommend patient get influenza vaccination, up-to-date on pneumococcal vaccination, and COVID-19 series plus booster at discharge. Of 2 saturations stable at 92 on room air (4) New onset seizure: Code(s): R56.9 - Unspecified convulsions Status: Acute Assessment and Plan: Suspected Patient was found on the driveway by her son. Patient was confused and had urinary incontinence. No tongue injury reported. Patient has no prior history of seizures. Of note patient has sodium level of 123 on admission prior history stroke. Seizure precautions Neuro consulted and appreciate recommendations Per neurology: starting Keppra 500mg BID, order CTA, and EEG as an outpatient (5) Acute dehydration: Code(s): E86.0 - Dehydration Status: Acute Assessment and Plan: As above. On IV fluids (6) COPD (chronic obstructive pulmonary disease): Qualifiers: COPD type: unspecified COPD Qualified Code(s): J44.9 - Chronic obstructive pulmonary disease, unspecified Code(s): J44.9 - Chronic obstructive pulmonary disease, unspecified Status: Chronic Assessment and Plan: Chronic, exacerbated by influenza infection. DuoNebs scheduled q.6 hours and titrate as needed. Prednisone 40 mg p.o. daily x5 days or longer if patient has extended recovery Hold patient maintenance inhalers lung receiving scheduled NKECHI (7) CAD (coronary artery disease): Qualifiers: Associated angina: without angina Coronary Disease-Associated Artery/Lesion type: [place] artery [place] vs. transplanted heart: [place] heart Qualified Code(s): I25.10 - Atherosclerotic heart disease of [place] coronary artery without angina pectoris Code(s): I25.10 - Atherosclerotic heart disease of [place] coronary artery without angina pectoris Status: Chronic Assessment and Plan: Chronic, stable. Clarify patient home meds and continue his blood pressure tolerates (8) Hypertension: Qualifiers: Hypertension type: primary hypertension Qualified Code(s): I10 - Essential (primary) hy
[2022-01-26] MEDS: ENOXAPARIN 40 MG/0.4 ML SYRINGE SUB-Q (09:02)
[2022-01-26] MEDS: amLODIPine BESYLATE 5 MG TABLET BY MOUTH (09:03)
[2022-01-26] MEDS: guaiFENesin 12 HR 600 MG TABCR PO ×2 (09:03→23:48)
[2022-01-26] MEDS: LORATADINE 10 MG TABLET BY MOUTH (09:03)
[2022-01-26] MEDS: predniSONE 20 MG TABLET 40 MG PO (09:03)
[2022-01-26] MEDS: EZETIMIBE 10 MG TABLET BY MOUTH (09:03)
[2022-01-26] MEDS: lisinopriL 20 MG TABLET 40 MG BY MOUTH (09:03)
[2022-01-26] MEDS: FAMOTIDINE 20 MG TABLET PO ×2 (09:03→23:48)
--- NOTE | 2022-01-26 09:59 | WPDNEURCNPN ---
Assessment and Plan Assessment and plan (1) New onset seizure: Code(s): R56.9 - Unspecified convulsions Status: Acute (2) Syncope and collapse: Code(s): R55 - Syncope and collapse Status: Acute (3) Hyponatremia: Code(s): E87.1 - Hypo-osmolality and hyponatremia Status: Acute (4) Flu: Code(s): J11.1 - Influenza due to unidentified influenza virus with other respiratory manifestations Status: Acute (5) History of stroke: Code(s): Z86.73 - Personal history of transient ischemic attack (TIA), and cerebral infarction without residual deficits Status: Acute Plan Altagracia Gaviria is a 66 year old female with a history of COPD, CAD, prior stroke, and current daily smoker who presented after being found down by family. Concern is highest for possible seizure given confusion and urinary incontinence, especially in the setting of prior stroke. Another consideration that has not been ruled out is vertebrobasilar insufficiency. - Will obtain CTA brain - I have discussed the option of starting anti-seizure medication with patient and she is agreeable -- will start Keppra 500mg BID - Routine EEG can be done as outpatient Consult date: 01/26/22 Time Seen: 10:00 Reason for consult: Concern for seizure HPI: Altagracia Gaviria is a 66 year old female with a history of COPD, CAD, prior stroke, and current daily smoker who presented after being found down by family. Patient was in her usual state of health on day of admission when she went outside to smoke. At some point afterwards, family found her on the ground in the driveway, seemingly confused with urinary incontinence. The fall itself was unwitnessed. Patient was brought into [place] ED where she was AOx3 on arrival. Labs were significant for hyponatremia (123) and she was influenza A positive. CT head showed bilateral chronic basal ganglia infarcts but no acute change. BP was in the 160s on arrival. Orthostatics have been negative during admission. MRI brain showed old infarct in the left occipital lobe and bilateral basal ganglia. She has also had bilateral carotid Doppler and surface echocardiogram which were unremarkable as well. Patient says she feels at baseline this morning. She has no recollection of the episode yesterday. She reports waking up on the ground confused and the only thing she remembered prior to that was going outside to smoke. She has not had any prior seizures and there is no family history of seizures. Review of Systems Constitutional: Constitutional: Reports no additional constitutional complaints Eyes: Eyes: Reports no additional eye complaints ENT: Reports system reviewed and no additional complaints, except as documented Cardiovascular: Cardiovascular: Reports no additional cardiovascular complaints Respiratory: Respiratory: Reports no additional respiratory complaints Gastrointestinal: Gastrointestinal: Reports no additional gastrointestinal complaints Genitourinary: Genitourinary: Reports no additional female genitourinary complaints Musculoskeletal: Musculoskeletal: Reports arthralgias Integumentary/Breasts: Skin/Breast: Reports system reviewed and no additional complaints, except as docu Neurologic: Reports as per HPI Psychiatric: Psychiatric: Reports no additional psychiatric complaints PMFSH Past Medical History Medical History CAD (coronary artery disease) COPD (chronic obstructive pulmonary disease) CVA (cerebral vascular accident) Hypertension Hypothyroid Surgical History Surgical History H/O section Hx of cholecystectomy Social History Social History Social History: denies alcohol, long-time smoker, denies drug use Smoking packs per day: 1 Smoking cigarettes per day: 20.0 Years smoked: 50 Smokin
[2022-01-26 10:00] VITALS: PULSE 80; RESP 16
[2022-01-26 10:10] VITALS: PULSE 82; RESP 16
[2022-01-26] MEDS: IPRATROPIUM BR 0.02% INH SOLN 0.5 MG/2.5 ML VIAL INHALATION (10:11)
[2022-01-26] MEDS: ALBUTEROL SULFATE NEB 2.5 MG/3 ML INH INHALATION (10:12)
[2022-01-26] MEDS: OSELTAMIVIR PHOSPHATE ORAL SUSP 30 MG/5 ML SYRINGE PO ×2 (11:27→23:47)
[2022-01-26 12:24] LABS: Glucose Point of Care 101 mg/dl (65-105)
[2022-01-26 14:00] VITALS: BP 149/73; PULSE 94; RESP 22; TEMP 35.8; O2SAT 94
[2022-01-26 14:25] LABS: Sodium Urine Random 69 meq/L
[2022-01-26 16:20] LABS: Glucose Point of Care 130 mg/dl (65-105)
--- NOTE | 2022-01-26 19:09 | PCRTNOTE ---
Window of time for administration has passed. See next scheduled administration.
[2022-01-26 22:00] VITALS: BP 149/78; PULSE 81; RESP 20; TEMP 36.1; O2SAT 95
--- NOTE | 2022-01-26 23:35 | PC.NURSE ---
Delay of Medications for administration, due to unknown location of medication drawer.
[2022-01-26] MEDS: ATORVASTATIN 40 MG TABLET 80 MG BY MOUTH (23:47)
[2022-01-26] MEDS: levETIRAcetam 500 MG TABLET PO (23:47)
[2022-01-27] VITALS (11 sets, daily range): BP systolic 112–171; BP diastolic 62–72; PULSE 77–88; RESP 16–20; TEMP 35.7–36.6; O2SAT 93–95
--- NOTE | 2022-01-27 01:41 | PCRCNOTE ---
window of time for administration has passed. See next available administration
[2022-01-27] MEDS: IPRATROPIUM BR 0.02% INH SOLN 0.5 MG/2.5 ML VIAL INHALATION ×4 (02:56→22:29)
[2022-01-27] MEDS: ALBUTEROL SULFATE NEB 2.5 MG/3 ML INH INHALATION ×4 (02:56→22:29)
[2022-01-27] MEDS: LEVOTHYROXINE SODIUM 25 MCG TABLET PO (05:42)
[2022-01-27] MEDS: LEVOTHYROXINE SODIUM 150 MCG TABLET PO (05:42)
[2022-01-27] MEDS: SODIUM CHLORIDE 0.9% IV 1,000 ML 100 ML IV CONT ×2 (06:33→23:28)
[2022-01-27 08:00] LABS: Hematocrit 35.6 % (37.0-47.0); Hemoglobin 11.8 g/dL (12.0-15.0); Mean Corpuscular HGB Conc 33.1 g/dl (32-36); Mean Corpuscular Hemoglobin 29.8 pg (26-34); Mean Corpuscular Volume 89.9 fl (80-100); Mean Platelet Volume 9.7 fl (7.4-10.4); Platelet Count Result 295 k/mm3 (150-375); Red Blood Count 3.96 M/mm3 (4.2-5.4); Red Cell Distribution Width 13.2 % (11.5-14.5); White Blood Count 9.7 K/mm3 (4.5-10.0)
[2022-01-27 08:14] LABS: Alanine Aminotransferase 30 U/L (6-35); Albumin Level 3.6 g/dL (3.5-5.1); Alkaline Phosphatase 140 U/L (38-126); Anion Gap 6 mmol/L (8-16); Aspartate Amino Transferase 65 U/L (14-36); Bilirubin,Total 0.3 mg/dL (0.2-1.3); Blood Urea Nitrogen 11 mg/dL (7-17); Calcium 8.3 mg/dL (8.4-10.2); Carbon Dioxide 30 mmol/L (22-30); Chloride 99 mmol/L (98-107); Estimated CRCL calculation 63 ml/min; Estimated Glomerular Filt Rate > 60; Glucose 84 mg/dL (65-110); Potassium 2.8 mmol/L (3.4-5.0); Sodium 135 mmol/L (137-145)
[2022-01-27] MEDS: POTASSIUM CHLORIDE 20 MEQ PACKET (FOR LIQUID) 40 MEQ PO (08:51)
[2022-01-27] MEDS: predniSONE 20 MG TABLET 40 MG PO (08:52)
[2022-01-27] MEDS: amLODIPine BESYLATE 5 MG TABLET BY MOUTH (08:52)
[2022-01-27] MEDS: levETIRAcetam 500 MG TABLET PO ×2 (08:53→20:09)
[2022-01-27] MEDS: FAMOTIDINE 20 MG TABLET PO ×2 (08:53→20:10)
[2022-01-27] MEDS: lisinopriL 20 MG TABLET 40 MG BY MOUTH (08:53)
[2022-01-27] MEDS: guaiFENesin 12 HR 600 MG TABCR PO ×2 (08:53→20:09)
[2022-01-27] MEDS: EZETIMIBE 10 MG TABLET BY MOUTH (08:53)
[2022-01-27] MEDS: ENOXAPARIN 40 MG/0.4 ML SYRINGE SUB-Q (08:53)
[2022-01-27 08:54] LABS: Glucose Point of Care 85 mg/dl (65-105)
[2022-01-27] MEDS: LORATADINE 10 MG TABLET BY MOUTH (08:56)
[2022-01-27] MEDS: OSELTAMIVIR PHOSPHATE ORAL SUSP 30 MG/5 ML SYRINGE PO ×2 (08:59→20:11)
--- NOTE | 2022-01-27 13:38 | PM.IMPN ---
Progress Note: A&P Assessment and Plan (1) Syncope and collapse: Code(s): R55 - Syncope and collapse Status: Acute Assessment and Plan: Patient presented to the ED following an unwitnessed syncopal episode at home. Patient was found on her driveway by her son. No prior history of syncope or seizures. She does endorse a prior stroke this year without residual. Patient did test positive for influenza A. Sodium 123 on admission. Trend sodium Neuro was consulted appreciate recommendations. Chest x-ray was negative for acute pulmonary disease Head CT shows bilateral chronic basal ganglia lacunar infarcts but no acute disease. CT cervical spine showed acute fracture or dislocation Brain MRI shows old infarcts to the left occipital lobe and bilateral basal ganglia but no acute stroke Carotid Dopplers less than 50% stenosis bilaterally Seizure precautions Orthostatic negative Monitor telemetry PT/OT evaluation (2) Hyponatremia: Code(s): E87.1 - Hypo-osmolality and hyponatremia Status: Acute Assessment and Plan: Sodium 123 on admission. No prior labs available to compare. Start NS IV fluids at 100 mL/hour Check urine osmo and urine sodium Seizure precautions. Trend sodium q.6 hours until greater than 130 Sodium today 136 (3) Flu: Code(s): J11.1 - Influenza due to unidentified influenza virus with other respiratory manifestations Status: Acute Assessment and Plan: patient tested positive for influenza A upon admission. She is requiring supplemental oxygen at this time. Chest x-ray is without infiltrates or consolidations suggesting bacterial pneumonia. No leukocytosis. No bandemia. Hold antibiotics at this time. Start Tamiflu, renally dosed continue for 5 days. Continue supplemental oxygen to keep sats greater than 92% and wean as patient tolerates Recommend patient get influenza vaccination, up-to-date on pneumococcal vaccination, and COVID-19 series plus booster at discharge. Of 2 saturations stable at 92 on room air (4) New onset seizure: Code(s): R56.9 - Unspecified convulsions Status: Acute Assessment and Plan: Suspected Patient was found on the driveway by her son. Patient was confused and had urinary incontinence. No tongue injury reported. Patient has no prior history of seizures. Of note patient has sodium level of 123 on admission prior history stroke. Seizure precautions Neuro consulted and appreciate recommendations Per neurology: starting Keppra 500mg BID, order CTA, and EEG possibly being done tomorrow. CTA head impression: Old infarcts involving the bilateral basal ganglia, anterior limbus of the bilateral internal capsules, and left occipital lobe. Mild nonspecific white matter disease which likely represents chronic vessel ischemia disease. No aneurysm or significant intracranial arterial stenosis. (5) Acute dehydration: Code(s): E86.0 - Dehydration Status: Acute Assessment and Plan: As above. On IV fluids (6) COPD (chronic obstructive pulmonary disease): Qualifiers: COPD type: unspecified COPD Qualified Code(s): J44.9 - Chronic obstructive pulmonary disease, unspecified Code(s): J44.9 - Chronic obstructive pulmonary disease, unspecified Status: Chronic Assessment and Plan: Chronic, exacerbated by influenza infection. DuoNebs scheduled q.6 hours and titrate as needed. Prednisone 40 mg p.o. daily x5 days or longer if patient has extended recovery Hold patient maintenance inhalers lung receiving scheduled NKECHI (7) CAD (coronary artery disease): Qualifiers: Associated angina: without angina Coronary Disease-Associated Artery/Lesion type: [place] artery [place] vs. transplanted heart: [place] heart Qualified Code(s): I25.10 - Atherosclerotic heart disease of [place] coronary artery without angina pectoris Code(s): I25.10 - Athe
[2022-01-27 15:28] LABS: Magnesium 1.8 mg/dL (1.6-2.3); Potassium 3.8 mmol/L (3.4-5.0)
[2022-01-27] MEDS: ATORVASTATIN 40 MG TABLET 80 MG BY MOUTH (20:09)
[2022-01-27] MEDS: MELATONIN 5 MG TABLET PO (20:45)
[2022-01-27] MEDS: BENZONATATE 100 MG CAPSULE PO (21:50)
[2022-01-28] MEDS: LEVOTHYROXINE SODIUM 150 MCG TABLET PO (05:39)
[2022-01-28 06:00] VITALS: BP 131/75; PULSE 71; RESP 20; TEMP 35.8; O2SAT 96
[2022-01-28 06:48] LABS: Hematocrit 40.1 % (37.0-47.0); Hemoglobin 12.1 g/dL (12.0-15.0); Mean Corpuscular HGB Conc 30.2 g/dl (32-36); Mean Corpuscular Hemoglobin 29.3 pg (26-34); Mean Corpuscular Volume 97.1 fl (80-100); Platelet Count Result 240 k/mm3 (150-375); Red Blood Count 4.13 M/mm3 (4.2-5.4); Red Cell Distribution Width 13.2 % (11.5-14.5); White Blood Count 8.6 K/mm3 (4.5-10.0)
[2022-01-28] MEDS: LEVOTHYROXINE SODIUM 25 MCG TABLET PO (07:33)
[2022-01-28 07:43] LABS: Alanine Aminotransferase 27 U/L (6-35); Albumin Level 3.2 g/dL (3.5-5.1); Alkaline Phosphatase 124 U/L (38-126); Anion Gap 6 mmol/L (8-16); Aspartate Amino Transferase 38 U/L (14-36); Bilirubin,Total 0.4 mg/dL (0.2-1.3); Blood Urea Nitrogen 11 mg/dL (7-17); Calcium 8.1 mg/dL (8.4-10.2); Carbon Dioxide 29 mmol/L (22-30); Chloride 102 mmol/L (98-107); Estimated CRCL calculation 63 ml/min; Estimated Glomerular Filt Rate > 60; Glucose 100 mg/dL (65-110); Potassium 3.2 mmol/L (3.4-5.0); Sodium 137 mmol/L (137-145)
[2022-01-28] MEDS: LORATADINE 10 MG TABLET BY MOUTH (08:36)
[2022-01-28] MEDS: POTASSIUM CHLORIDE 20 MEQ TABLET.ER 40 MEQ PO (08:36)
[2022-01-28] MEDS: BENZONATATE 100 MG CAPSULE PO (08:36)
[2022-01-28] MEDS: lisinopriL 20 MG TABLET 40 MG BY MOUTH (08:37)
[2022-01-28] MEDS: amLODIPine BESYLATE 5 MG TABLET BY MOUTH (08:37)
[2022-01-28] MEDS: levETIRAcetam 500 MG TABLET PO (08:37)
[2022-01-28] MEDS: FAMOTIDINE 20 MG TABLET PO (08:37)
[2022-01-28] MEDS: predniSONE 20 MG TABLET 40 MG PO (08:37)
[2022-01-28] MEDS: ENOXAPARIN 40 MG/0.4 ML SYRINGE SUB-Q (08:37)
[2022-01-28] MEDS: EZETIMIBE 10 MG TABLET BY MOUTH (08:37)
[2022-01-28] MEDS: guaiFENesin 12 HR 600 MG TABCR PO (08:37)
[2022-01-28] MEDS: ALBUTEROL SULFATE NEB 2.5 MG/3 ML INH INHALATION ×2 (08:44→12:14)
[2022-01-28] MEDS: IPRATROPIUM BR 0.02% INH SOLN 0.5 MG/2.5 ML VIAL INHALATION ×2 (08:44→12:14)
[2022-01-28 08:46] VITALS: PULSE 96; RESP 24; O2SAT 98
[2022-01-28] MEDS: OSELTAMIVIR PHOSPHATE ORAL SUSP 30 MG/5 ML SYRINGE PO (09:05)
[2022-01-28 09:07] VITALS: PULSE 102; RESP 22
[2022-01-28 12:15] VITALS: PULSE 100; RESP 24
[2022-01-28 12:22] LABS: Potassium 3.7 mmol/L (3.4-5.0)
[2022-01-28 14:00] VITALS: BP 121/66; PULSE 70; RESP 24; TEMP 35.9; O2SAT 99
--- NOTE | 2022-01-28 14:05 | PM.DS ---
DS: Admitting Diagnosis Discharge Date 01/28/2022 Admitting Diagnosis Influenza a, unwitnessed fall, loss of consciousness DS: Discharge Diagnosis Discharge Diagnosis (1) Syncope and collapse: Code(s): R55 - Syncope and collapse Status: Acute (2) Hyponatremia: Code(s): E87.1 - Hypo-osmolality and hyponatremia Status: Acute (3) Flu: Code(s): J11.1 - Influenza due to unidentified influenza virus with other respiratory manifestations Status: Acute (4) New onset seizure: Code(s): R56.9 - Unspecified convulsions Status: Acute (5) Acute dehydration: Code(s): E86.0 - Dehydration Status: Acute (6) COPD (chronic obstructive pulmonary disease): Qualifiers: COPD type: unspecified COPD Qualified Code(s): J44.9 - Chronic obstructive pulmonary disease, unspecified Code(s): J44.9 - Chronic obstructive pulmonary disease, unspecified Status: Chronic (7) CAD (coronary artery disease): Qualifiers: Associated angina: without angina Coronary Disease-Associated Artery/Lesion type: [place] artery [place] vs. transplanted heart: [place] heart Qualified Code(s): I25.10 - Atherosclerotic heart disease of [place] coronary artery without angina pectoris Code(s): I25.10 - Atherosclerotic heart disease of [place] coronary artery without angina pectoris Status: Chronic (8) Hypertension: Qualifiers: Hypertension type: primary hypertension Qualified Code(s): I10 - Essential (primary) hypertension Code(s): I10 - Essential (primary) hypertension Status: Chronic (9) Hypothyroid: Qualifiers: Hypothyroidism type: acquired Qualified Code(s): E03.9 - Hypothyroidism, unspecified Code(s): E03.9 - Hypothyroidism, unspecified Status: Chronic (10) Hypokalemia: Code(s): E87.6 - Hypokalemia Status: Acute Plan Code status: Full code Disposition: Observation Discharge plan: Patient will likely be discharged home and may or may need home health services DS: Summary Hospital Course Reason for hospitalization: Influenza a, unwitnessed fall, loss of consciousness Hospital Course: 66-year-old with a history of COPD, CAD, hypothyroidism and hypertension.? Patient admitted due to fall and loss of consciousness.? Fall was unwitnessed.??Patient's son had found her lying on the ground when he arrived to her house. Patient had urinary incontinence without tongue laceration. Patient has no history of seizures in patient could not recall events leading up to her loss of consciousness. On admission patient tested positive for influenza a and hyponatremic with a sodium of 123. Patient started on fluids and Tamiflu for 5 days. Patient underwent seizure precautions, chest x-ray, head CT, CTA head MRI of the brain, echocardiogram, carotid Doppler, and a neurological consult. Chest x-ray and carotid Dopplers negative. CT head revealed bilateral basal ganglia lacunar infarcts but no acute disease. Brain MRA revealed old infarcts. No acute stroke. Sodium leveled out and was 137 on discharge. Patient O2 saturations stable on room air. Neurology consulted an started patient on Keppra 500 mg b.i.d. and agreed to EEG outpatient. Patient did have bouts of hypokalemia. It was corrected with potassium chloride. Patient's normal saline discontinued and potassium normalized. Potassium on discharge 3.7. It is recommended the patient follow-up with Neurology as an outpatient. Time Spent with Patient Time attestation: Total time spent providing and/or coordinating discharge services: Time spent: Greater than 30 minutes Exam Narrative: GENERAL: Comfortable, no acute distress HENMT: moist mucous membranes EYES: EOM intact b/l NECK: no lymphadenopathy RESPIRATORY: clear to auscultation CARDIO: RRR GI: soft, nontender, bowel sounds present SKIN: no rashes EXTREMITIES: no edema, redness or tenderne
--- NOTE | 2022-01-29 10:56 | WPDNEUROLOGY ---
Neurology EEG Report General Information Date of Study: 01/28/22 TEST eeg DIAGNOSIS Seizures CONDITION OF RECORDING awake drowsy and sleep EEG NUMBER [id number] CLINICAL HISTORY patient reports she lost consciousness at home couple of days ago EEG DESCRIPTION basic resting occipital frequency test of low to medium voltage 8 to 9 hertz per 2nd alpha admixed with low-voltage 15 to 18 hertz per 2nd beta. Low-voltage beta activity seen anteriorly. Intermittent medium voltage 5 to 7 hertz per 2nd theta seen admixed with 3 to 4 hertz per 2nd delta activity posteriorly. Bilateral symmetrical sleep activity seen with intermittent K complexes hyperventilation not done photic stimulation not done. Non nonfocal. Nonlateralizing. Non paroxysmal. IMPRESSION Mildly abnormal record due to the presence of excessive amount of theta and delta activity during wakefulness. clinical correlation recommended these abnormalities could be consistentent with organic or metabolic encephalopathy or post ictal state even though there is no evidence of any paroxysmal activity in this tracing. clinical correlation recommended.
[2022-01-30 21:28] LABS: Osmolality, Urine 204 mOsm/kg (50-1200)
== END 2022-01-28 16:55 | disposition home or self-care (01) ==
LOC: ANHED 01-24 01:47 → ANH3MEDSUR 01-24 03:27
PROVIDERS: Internal Medicine Critical Care Medicine; Nurse Practitioner Family; Admitting Provider Internal Medicine; Emergency Provider Emergency Medicine; Visit Provider Internal Medicine
DX: R55 Syncope and collapse (principal); E87.1 Hypo-osmolality and hyponatremia; J11.1 Influenza due to unidentified influenza virus with other respiratory manifestations; R56.9 Unspecified convulsions; E86.0 Dehydration; J44.9 Chronic obstructive pulmonary disease, unspecified; I25.10 Atherosclerotic heart disease of native coronary artery without angina pectoris; I11.9 Hypertensive heart disease without heart failure; E03.9 Hypothyroidism, unspecified; R00.0 Tachycardia, unspecified; I35.8 Other nonrheumatic aortic valve disorders; Z20.822 Contact with and (suspected) exposure to COVID-19; R90.82 White matter disease, unspecified; I70.0 Atherosclerosis of aorta; R94.01 Abnormal electroencephalogram [EEG]; M47.812 Spondylosis without myelopathy or radiculopathy, cervical region; F17.210 Nicotine dependence, cigarettes, uncomplicated; E66.9 Obesity, unspecified; Z68.34 Body mass index [BMI] 34.0-34.9, adult; E87.8 Other disorders of electrolyte and fluid balance, not elsewhere classified; Z86.73 Personal history of transient ischemic attack (TIA), and cerebral infarction without residual deficits; R06.9 Unspecified abnormalities of breathing; R06.2 Wheezing
CPT/HCPCS: 36415; 70450; 70496; 70551; 71045; 72125; 80048; 80053; 80307; 82948; 83735; 83880; 83935; 84132; 84295; 84300; 84439; 84443; 84480; 84484; 85025; 85027; 87636; 93005; 93306; 93880; 94640; 95816; 96361; 96365; 96372; 96375; 99285; A9270; G0378; J1650; J2930; J3475; J7030; J7512; Q9967